=== PATIENT | male | born 1950 | race Caucasian/White ===

== ENCOUNTER 2016-10-26 22:10 | Emergency (ER) | payer MEDICARE, OTHER ==
[~2016-10-26 22:10] MED LIST: ASPIR-LOW81 MG PO; BUSPAR 5MG TABLE5 MG PO; CARDIZEM PO; GLUCOPHAGE 500500 MG PO; LOPRESSOR 25 MG25 MG PO; ZOCOR20 MG PO
[2016-10-27 08:39] LABS: HEMOGLOBIN 16.1 gm/dl (14.0-17.5); RED BLOOD COUNT 5.18 M/UL (4.20-5.50); WHITE BLOOD COUNT 11.5 K/UL (4.5-11.0)
[2016-10-27 08:58] LABS: BUN/CREATININE RATIO 17 (0-10)
== END 2016-10-27 10:00 | disposition home or self-care (01) ==
LOC: ER1 22:10
PROVIDERS: Emergency Medicine
DX: I10 Essential (primary) hypertension (principal); E11.9 Type 2 diabetes mellitus without complications; I25.10 Atherosclerotic heart disease of native coronary artery without angina pectoris
CPT/HCPCS: 36415; 71010; 80053; 82550; 82553; 83874; 84484; 85025; 93005; 99283

== ENCOUNTER → 2021-02-25 | Outpatient (CLI) | payer MEDICARE, OTHER | LOC: HEART 5 09:13 | DX: R06.02 Shortness of breath (principal); R42 Dizziness and giddiness | CPT/HCPCS: 93306 ==

== ENCOUNTER → 2021-05-12 | Outpatient (CLI) | payer MEDICARE, OTHER | LOC: KOH-I 12:37 | DX: J44.9 Chronic obstructive pulmonary disease, unspecified (principal) | CPT/HCPCS: 71046 ==

== ENCOUNTER → 2021-07-31 | Outpatient (CLI) | payer MEDICARE, OTHER | LOC: HEART 5 13:58 | DX: J44.9 Chronic obstructive pulmonary disease, unspecified (principal); I50.9 Heart failure, unspecified; J98.11 Atelectasis; J84.10 Pulmonary fibrosis, unspecified | CPT/HCPCS: 71046; 94010; 94729 ==

== ENCOUNTER → 2021-09-09 | Outpatient (CLI) | payer MEDICARE, OTHER | LOC: HEART 5 07:53 | DX: R94.31 Abnormal electrocardiogram [ECG] [EKG] (principal); R06.02 Shortness of breath; R07.9 Chest pain, unspecified; I08.3 Combined rheumatic disorders of mitral, aortic and tricuspid valves | CPT/HCPCS: 78452; 93306; A9502; J2785 ==

== ENCOUNTER 2021-12-29 13:09 | Observation (INO) | payer MEDICARE, OTHER ==
[~2021-12-29] VITALS: Ht 170.2 cm; Wt 90.3 kg
[2021-12-29 13:28] LABS: HEMOGLOBIN 14.4 gm/dl (14.0-17.5); RED BLOOD COUNT 4.54 M/UL (4.20-5.50); WHITE BLOOD COUNT 12.8 K/UL (4.5-11.0)
[2021-12-29] MEDS ORDERED: LOSARTAN POTASS25 MG PO (17:14)
[2021-12-29] MEDS ORDERED: PREDNISONE10 MG PO (17:14)
[2021-12-29] MEDS ORDERED: SYMBICORT 16010.2 GM INH (17:15)
[2021-12-29] MEDS ORDERED: SIMVASTATIN10 MG PO (17:15)
[2021-12-29] MEDS ORDERED: MECLIZINE HCL25 MG PO (17:15)
[2021-12-29] MEDS ORDERED: DILTIAZEM ER360 M1 PO (17:15)
[2021-12-29] MEDS ORDERED: LORATADINE10 MG PO (17:16)
[2021-12-29] MEDS ORDERED: FLOMAX 0.4 MG0.4 MG PO (17:16)
[2021-12-29] MEDS ORDERED: PIOGLITAZONE HC15 MG PO (17:16)
[2021-12-29] MEDS ORDERED: METOPROLOL TART25 MG PO (17:16)
[2021-12-29] MEDS ORDERED: HYDROCHLOROTH12.5 MG PO (17:17)
[2021-12-29] MEDS ORDERED: SERTRALINE HCL25 MG PO (17:17)
[2021-12-30 10:21] LABS: BUN/CREATININE RATIO 20 (0-10)
== END 2021-12-30 14:16 | disposition home or self-care (01) ==
LOC: ER1 13:09 → M/S 15:41 → CDU 15:41 → M/S 21:33
PROVIDERS: Physician Assistant Medical; ADMIT Internal Medicine
DX: T67.5XXA Heat exhaustion, unspecified, initial encounter (principal); N17.9 Acute kidney failure, unspecified; I25.10 Atherosclerotic heart disease of native coronary artery without angina pectoris; E11.9 Type 2 diabetes mellitus without complications; I10 Essential (primary) hypertension; E78.5 Hyperlipidemia, unspecified; J44.9 Chronic obstructive pulmonary disease, unspecified; E86.0 Dehydration; R00.1 Bradycardia, unspecified; G47.33 Obstructive sleep apnea (adult) (pediatric); N40.0 Benign prostatic hyperplasia without lower urinary tract symptoms; I42.9 Cardiomyopathy, unspecified; I25.2 Old myocardial infarction; Z79.4 Long term (current) use of insulin; Z79.82 Long term (current) use of aspirin; Z79.84 Long term (current) use of oral hypoglycemic drugs; Z79.899 Other long term (current) drug therapy; Z82.49 Family history of ischemic heart disease and other diseases of the circulatory system
CPT/HCPCS: ECHO; 36415; 71045; 80048; 80053; 82550; 82553; 82962; 84484; 85025; 85610; 85730; 93005; 93306; 94664; 99285; G0378